=== PATIENT | male | born 1965 | race Two or more races ===

== ENCOUNTER 2019-02-01 18:19 | Emergency (ER) | payer OTHER ==
[~2019-02-01] VITALS: Ht 182.9 cm; Wt 115.2 kg
[2019-02-01] MEDS ORDERED: JANUMET 50-1,01 EACH (18:47)
[2019-02-01] MEDS ORDERED: METFORMIN HCL1000 MG (18:47)
[2019-02-01] MEDS ORDERED: JANUVIA50 MG (18:47)
[2019-02-01] MEDS ORDERED: LOSARTAN-HCTZ1 EAC2 (18:47)
[2019-02-01] MEDS ORDERED: LANTUS SOL100 UNIT/1 (18:48)
[2019-02-01] MEDS ORDERED: ASPIR 8181 MG (18:48)
[2019-02-01] MEDS ORDERED: NORVASC5 MG (18:48)
[2019-02-01] MEDS ORDERED: ALLEGRA ALLERGY60 MG (18:48)
[2019-02-02] MEDS ORDERED: IBUPROFEN600 MG PO (00:16)
[2019-02-02] MEDS ORDERED: BACTRIM DS TAB1 EACH PO (00:16)
[2019-02-02] MEDS ORDERED: INTESTINEX680 M1 PO (00:16)
== END 2019-02-02 01:00 | disposition home or self-care (01) ==
LOC: ER 18:19
DX: S81.821A Laceration with foreign body, right lower leg, initial encounter (principal); W45.8XXA Other foreign body or object entering through skin, initial encounter; Y93.89 Activity, other specified; Y92.69 Other specified industrial and construction area as the place of occurrence of the external cause; Y99.8 Other external cause status

== ENCOUNTER 2019-02-04 09:42 | Emergency (ER) | payer OTHER ==
[~2019-02-04] VITALS: Ht 167.6 cm; Wt 115.2 kg
[~2019-02-04 09:42] MED LIST: ALLEGRA ALLERGY60 MG; ASPIR 8181 MG; BACTRIM DS TAB1 EACH PO; IBUPROFEN600 MG PO; INTESTINEX680 M1 PO; JANUMET 50-1,01 EACH; JANUVIA50 MG; LANTUS SOL100 UNIT/1; LOSARTAN-HCTZ1 EAC2; METFORMIN HCL1000 MG; NORVASC5 MG
[2019-02-04] MEDS ORDERED: TRAMADOL HCL300 M1 (09:55)
[2019-02-04] MEDS ORDERED: CEFADROXIL 500 MG (09:55)
== END 2019-02-04 10:58 | disposition home or self-care (01) ==
LOC: ER 09:42
DX: S81.821S Laceration with foreign body, right lower leg, sequela (principal); G89.11 Acute pain due to trauma; W45.8XXS Other foreign body or object entering through skin, sequela